=== PATIENT | male | born 1970 | race Caucasian/White ===

== ENCOUNTER → 2016-07-08 | Outpatient (CLI) | payer MEDICAID ==
[~2016-07-08] MED LIST: A/B OTIC 54 MG/15 ML OT; AMOXICILLIN875 MG PO; BACTRIM DS 8001 TAB PO; BENADRYL 25MG C25 MG PO; CEPHALEXIN500 MG PO; CETIRIZINE10 MG PO; CIPRO 500MG TA500 MG PO; CORTISPORIN10 ML OT; DIPHENHYDRAMINE25 M1 PO; DOXYCYCLINE MO100 MG PO; FLEXERIL10 MG PO; FUROSEMIDE20 MG PO; GABAPENTIN 400400 M1 PO; HYDROXYZINE HCL25 MG PO; KEFLEX 500MG.500 MG PO; LEVOTHYROXINE0.1 M2 PO; LISINOPRIL40 MG PO; LORTAB 5/500 501 TAB PO; LOTRIMIN AF TP; MAXALT10 MG PO; MEDROL 4MG. DOSE4 MG PO; METFORMIN HCL1000 MG PO; METFORMIN1000 MG PO; METOCLOPRAMIDE10 M2 PO; METOCLOPRAMIDE10 MG PO; METOPROLOL25 MG PO; MOBIC15 MG PO; NEXIUM40 MG PO; NORTRIPTYLINE50 MG PO; OMEPRAZOLE20 MG PO; PERMETHRIN5% TP; PROTONIX 40MG T40 MG PO; ROPINIROLE HYDRO1 MG PO; ROPINIROLE HYDRO3 MG PO; RYBIX ODT50 MG PO; SALINE MIST 4545 ML NS; SALMETEROL-F28 PUFFS IN; SINGULAIR10 MG PO; SPIRIVA HA1 PUFF/INH IH; SULFAMETHOXAZOL1 TA6 PO; TRAMADOL 50MG T50 MG PO; TRILIPIX45 M1 PO; TRILISATE PO; ULTRAM 50 MG TA50 MG PO; VERAMYST27.5 MCG/A NS; VESICARE5 MG PO; VICODIN 5/500 T1 TAB PO; XOPENEX HF0.045 MG/A IH; XOPENEX1.25 MG/3 IH; ZITHROMAX Z-PA250 M2 PO
--- NOTE | 2016-07-08 14:25 | RADIOLOGY REPORT PS360 ---
ELBOW-LT-3 VIEWS HISTORY: LEFT ELBOW PAIN ORDERING PHYSICIAN: Berta Yanez APRN PATIENT AGE: 46 years COMPARISON: None FINDINGS: BONY STRUCTURES: No fracture or dislocation. No lytic or blastic change. Normal mineralization. SOFT TISSUES: Unremarkable. No radio opaque foreign bodies. No displaced fat pad. JOINT SPACE: Well-preserved. No significant arthritic changes evident. IMPRESSION: Negative elbow.
== END ==
LOC: RAD 12:06
DX: M25.522 Pain in left elbow (principal)